=== PATIENT | male | born 1960 | race Caucasian/White ===

== ENCOUNTER 2020-08-10 08:52 | Day surgery (SDC) | payer OTHER ==
[~2020-08-10] VITALS: Ht 193 cm; Wt 115.3 kg
[2020-08-10] VITALS (7 sets, daily range): BP systolic 123–131; BP diastolic 68–86; PULSE 67–70; TEMP 97.3–99
[2020-08-10] MEDS ORDERED: CELEBREX 200MG200 MG PO (09:38)
[2020-08-10] MEDS ORDERED: WELLBUTRIN XL150 MG PO (09:38)
[2020-08-10] MEDS ORDERED: IMITREX 6M6 MG/0.5 M SQ (09:39)
[2020-08-10] MEDS ORDERED: ZOCOR 40MG40 MG PO (09:40)
[2020-08-10] MEDS ORDERED: FISH OIL 500 M1 EAC1 PO (09:41)
[2020-08-10] MEDS ORDERED: ZYRTEC 10MG10 MG PO (09:41)
--- NOTE | 2020-08-10 09:41 | NUR ---
Initial visit; Patient thanked [employer] for offering encouragement and prayer prior to his surgical procedure. [employer]ater also prayed for a thorough and rapid recovery.
[2020-08-10] MEDS ORDERED: ZADITOR 5 ML5 ML OP (09:42)
[2020-08-10] MEDS ORDERED: AMBIEN 10MG10 MG PO (09:43)
--- NOTE | 2020-08-10 09:44 | NUR ---
TO RM 1 AT 0901- CALL LIGHT IN REACH AT BEDSIDE.
[2020-08-10] MEDS ORDERED: ULTRAM 50MG TAB50 MG PO (12:30)
--- NOTE | 2020-08-10 13:20 | NUR ---
TO RM 1 PER CART FROM PACU. ALERT ORIENTED X3, TALKING TO STAFF AND HIS . RECEIVED WATER AND TAKING SIPS. O2 94% ON 2L. INCISION SITES CLEAN DRY COVERED WITH SKIN ADHESIVE.
--- NOTE | 2020-08-10 13:35 | NUR ---
RECEIVED 2ND CUP OF WATER AND CRACKERS.
--- NOTE | 2020-08-10 13:50 | NUR ---
C/O PAIN /10 RECEIVED NORCO 1 TAB
--- NOTE | 2020-08-10 14:05 | NUR ---
ENCOURGED TO TAKE DEEP BREATHS
--- NOTE | 2020-08-10 14:20 | NUR ---
ATE 100% AND TOLERATED WELL. ASKING IF AND WHEN HE CAN GO HOME.
--- NOTE | 2020-08-10 14:30 | NUR ---
AMBULATED TO BATHROOM AND TOLERATED WELL. VOIDED AND AMBULATED BACK TO .
--- NOTE | 2020-08-10 14:40 | NUR ---
DISCONTINUED IV AND INT- CATHETER INTACT. RECEIVED DISCHARGE INSTRUCTIONS AND VERBALIZED UNDERSTANDING. PATIENT GETTING DRESSED.
--- NOTE | 2020-08-10 14:50 | NUR ---
DISCHARGED PER WC BY NURSING STAFF TO PRIVATE CAR IN CARE OF HIS AVERY.
== END 2020-08-10 15:22 | disposition home or self-care (01) ==
LOC: SDCO 08:52
DX: K40.91 Unilateral inguinal hernia, without obstruction or gangrene, recurrent (principal); K21.9 Gastro-esophageal reflux disease without esophagitis; G47.33 Obstructive sleep apnea (adult) (pediatric); M19.90 Unspecified osteoarthritis, unspecified site; G43.909 Migraine, unspecified, not intractable, without status migrainosus; E78.00 Pure hypercholesterolemia, unspecified; F17.210 Nicotine dependence, cigarettes, uncomplicated; F32.9 Major depressive disorder, single episode, unspecified; F41.9 Anxiety disorder, unspecified; Z79.899 Other long term (current) drug therapy; Z90.89 Acquired absence of other organs
CPT/HCPCS: C1781; J0690; J1100; J1885; J2405; J2704; J3010; J7120